=== PATIENT | female | born 1945 | race Caucasian/White ===

== ENCOUNTER → 2023-07-13 | Outpatient (CLI) | payer MEDICARE ==
--- NOTE | 2023-07-14 09:29 | CT ---
EXAMINATION TYPE: CT iac wo con DATE OF EXAM: 07/13/2023 COMPARISON: None HISTORY: Hearing loss, worse on the left. CT DLP: 240 mGycm Automated exposure control for dose reduction was used. Contrast: None Technique: Axial images 1 mm thick sections. Reconstructed images in the coronal and sagittal planes. FINDINGS: Ethmoid air cells sphenoid sinuses and upper maxillary sinuses are clear. There is some mucosal thick ening within the inferior left maxillary sinus. Pilar bullosa is present on the right. Dental amalga m scatter artifact is present at the level of the mandible. Maxillary spine is intact. Temporomandibu lar junctions appear normal. Bilateral mastoid air cell opacification is present. Correlate for bilateral mastoiditis. Some fluid is within the bilateral middle ears with fluid extending adjacent to the incus and malleus. Correlate for otitis media. Incus and malleus have normal orientation. Cochlea are normal. Semicircular canals appear normal. Int ernal auditory canals appear normal without expansion or erosion. No obvious cerebellar pontine angle mass or intracanalicular masses are evident. IMPRESSION: 1. NO OPACIFICATION OF THE MASTOID AIR CELLS BILATERALLY WITH FLUID WITHIN THE BILATERAL MIDDLE EARS. CORRELATE FOR BILATERAL OTITIS MEDIA AND MASTOIDITIS.
== END | disposition home or self-care (01) ==
LOC: RADCTMAIN 11:42
PROVIDERS: ATTEND Otolaryngology
DX: H91.90 Unspecified hearing loss, unspecified ear (principal); H93.19 Tinnitus, unspecified ear; R42 Dizziness and giddiness
CPT/HCPCS: 70480

== ENCOUNTER 2023-08-11 10:14 | Day surgery (SDC) | payer MEDICARE ==
[2023-08-07 11:11] VITALS: BMI 30.5
--- NOTE | 2023-08-10 23:08 | HP ---
HISTORY AND PHYSICAL CHIEF COMPLAINT: Fluid in both ears. ADDENDUM: The addendum is respect to the history and physical. CARDIOVASCULAR: The patient is in regular sinus rhythm. S1, S2 are present without any evidence any murmurs. LUNGS: Both lung velásquez are clear to percussion and auscultation. Peripheral pulses are bilaterally symmetrical. ABDOMEN: There is no evidence of any masses, megaly or tenderness. The abdomen is soft. SKIN: Unremarkable. MUSCULOSKELETAL: Within normal limits. NEUROLOGICAL: Within normal limits. PELVIC/RECTAL: Deferred at this time because the patient has this done on a regular basis at her family physician's office. MMODL / IJN: [id number] /
--- NOTE | 2023-08-10 23:17 | HP ---
HISTORY AND PHYSICAL CHIEF COMPLAINT: Fluid in both ears. HISTORY OF PRESENT ILLNESS: This patient is a 78-year-old female, who was recently seen in my office complaining that both ears were plugged. In addition to this, an audiological examination revealed that the patient had a bilateral severe mixed hearing loss with evidence of fluid in both ears. The patient states that when she talks, it sounds as if she has had stuck in a barrel. At the time that she was seen in the office, clinical examination revealed evidence of bilateral middle ear effusion, so-called glue ear. The patient was placed on a 10-day course of oral steroids and was later seen back in the office. At that time, the patient stated that the ears still felt plugged. Clinical examination reveals she still had bilateral middle ear effusion. In addition, a CT scan of the internal auditory canals revealed evidence of a bilateral middle ear effusion. It was therefore recommended that the patient undergo bilateral myringotomy with insertion of ventilation tube under general anesthesia. I have advised the patient that if at the time of surgery, I do not see a significant amount of fluid in the middle ear spaces, then I might simply place a pediatric Tytan ventilation tube in both tympanic membranes. PAST MEDICAL HISTORY: Reveals the patient has a known allergy to penicillin. CURRENT MEDICATIONS: Include metoprolol, lisinopril, amlodipine, Crestor, 1 baby aspirin daily, and Flonase nasal spray. REVIEW OF SYSTEMS: Reveals cardiovascular system is positive for hypertension, metabolic endocrine system is positive for hypercholesterolemia. The remainder of the review of systems is essentially unremarkable. PREVIOUS SURGERIES: Include a hysterectomy. PHYSICAL EXAMINATION: GENERAL: The patient is a 78-year-old female, who is alert and cooperative. HEENT: The patient is normocephalic. Both tympanic membranes are dull and retracted with fluid in both middle ear spaces. Pupils are equal, round, and reactive to light and accommodation. Extraocular movements are within normal limits. Intranasal examination reveals moderate septal deviation with compensatory hypertrophy inferior turbinates and moderate amount of mucus on mucous membranes and draining down the posterior pharyngeal wall. Examination of oropharynx and the remainder of the head and neck exam are within normal limits. CHEST/CARDIOVASCULAR: Both lung velásquez are clear to percussion and auscultation. The patient is in regular sinus rhythm. S1, S2 are present without any murmurs. Peripheral pulses are bilaterally symmetrical. Remainder of physical exam is unremarkable. IMPRESSION: Chronic bilateral serous otitis media. PLAN: The patient is scheduled to undergo a bilateral myringotomy with insertion of ventilation tubes under IV sedation with MAC in a.m. Attention RNs in the pre-surgical area: I have not ordered any pre-surgical prophylactic antibiotics for this patient. If the pharmacy department sends any pre-surgical prophylactic antibiotics to the pre- surgical area for this patient, that order should be cancelled and the medication should be returned to the pharmacy department. Also, please make sure that the patient's account is credited appropriately. I have discussed the risks, benefits and alternative therapies for the above-mentioned procedure and for both sedation/analgesia as well as necessary blood product administration, if indicated, as they pertain to this patient. The patient has indicated her understanding and acceptance of the risks and procedures discussed. MMODL / IJN: [id number] /
[~2023-08-11 10:14] MED LIST: DEXAMETHASONE SOD PHOSPHATE 4 MG/ML 1 ML VIAL IV ONE; HYDROmorphone 0.5 MG/0.5 ML SYRINGE IVP PRN; LACTATED RINGERS 1,000 ML IV SCH; LIDOCAINE 1% (10MG/ML) FOR IV START INTRADERMA PRN; MIDAZOLAM 2 MG/2 ML VIAL IV PRN; ONDANSETRON 4 MG/2 ML VIAL IVP ONE; Pre Op ABX Message 1 EACH MISC MISCELLANE ONE
[2023-08-11 10:46] VITALS: TEMP 98.9
[2023-08-11] MEDS ORDERED: OFLOXACIN 0.3% OPHTH DROPS 5 ML BOTTLE BOTH EARS ONE ×2 (11:34→11:58)
[2023-08-11] MEDS ORDERED: PROPOFOL 10 MG/ML 20 ML VIAL IV ONE (11:35)
[2023-08-11] MEDS ORDERED: fentaNYL (PF) 50 MCG/ML 2 ML AMP ONE (11:35)
[2023-08-11] MEDS ORDERED: MIDAZOLAM 2 MG/2 ML VIAL ONE (11:35)
[2023-08-11 13:16] VITALS: BP 148/77; PULSE 62; RESP 12
--- NOTE | 2023-08-11 18:43 | OP ---
OPERATIVE REPORT DATE OF SERVICE : PREOPERATIVE DIAGNOSIS: Chronic bilateral serous otitis media. POSTOPERATIVE DIAGNOSIS: Chronic bilateral serous otitis media. ANESTHESIA: IV sedation with MAC. PROCEDURE PERFORMED: Bilateral myringotomy with insertion of plastic Evangelina-Bobbin ventilation tubes. COMPLICATIONS: None. ESTIMATED BLOOD LOSS: Zero. DESCRIPTION OF PROCEDURE: The patient was placed on the operating table in the supine position. After uneventful induction and IV sedation, satisfactory MAC anesthesia was obtained. Next, the operating microscope was brought into position over the patient's right ear, where after insertion of a #3 aural speculum, the external canal was cleansed of all wax and debris. The myringotomy knife was used to make an incision in the anterior inferior quadrant of the right tympanic membrane. The middle ear space was suctioned free of all fluid, and a 1.1 mm Evangelina-Bobbin ventilation tube was inserted without any difficulty. Attention was then directed to the left ear, where the same procedure was carried out using the operating microscope, #3 aural speculum, the external auditory canal was cleansed of all wax and debris. The myringotomy knife was used to make an incision in the anterior inferior quadrant of the left tympanic membrane, and the middle ear space was suctioned free of all fluid. A 1.1 mm Evangelina-Bobbin ventilation tube was inserted without any difficulty. At this point, the procedure was terminated. There were no intraoperative complications. The patient tolerated the procedure well and was returned to the recovery room in satisfactory condition. MMODL / IJN: [id number] /
== END 2023-08-11 13:26 | disposition home or self-care (01) ==
LOC: OR 10:14
PROVIDERS: ATTEND Otolaryngology
DX: H65.23 Chronic serous otitis media, bilateral (principal); H90.6 Mixed conductive and sensorineural hearing loss, bilateral; H65.93 Unspecified nonsuppurative otitis media, bilateral; Z79.82 Long term (current) use of aspirin; Z79.899 Other long term (current) drug therapy
CPT/HCPCS: 69436; J2250; J3010; J2704